=== PATIENT | female | born 1970 | race Caucasian/White ===

== ENCOUNTER 2020-02-19 15:17 | Emergency (ER) | payer SELFPAY ==
[~2020-02-19] VITALS: Ht 170.2 cm; Wt 86.2 kg
[2020-02-19] MEDS ORDERED: BUSPIRONE HCL5 MG PO (15:29)
[2020-02-19] MEDS ORDERED: HYDROXYZINE HCL25 MG PO (16:06)
[2020-02-19] MEDS ORDERED: LISINOPRIL-HCT1 EACH PO (16:06)
== END 2020-02-19 19:14 | disposition home or self-care (01) ==
LOC: ED 15:17
DX: F32.9 Major depressive disorder, single episode, unspecified (principal); F41.9 Anxiety disorder, unspecified; I10 Essential (primary) hypertension; Z79.899 Other long term (current) drug therapy
CPT/HCPCS: 80048; 85025; 99283; G0480